=== PATIENT | male | born 1950 | race Caucasian/White ===

== ENCOUNTER 2017-08-28 11:26 | Emergency (ER) | payer SELFPAY ==
[2017-08-28 11:30] VITALS: BP 119/70; PULSE 96; RESP 16; TEMP 98.3; O2SAT 98
[2017-08-28] MEDS ORDERED: PERM5CRE11 TOPICAL (12:24)
[2017-08-28] MEDS ORDERED: DOXY100C PO (12:24)
--- NOTE | 2017-08-28 12:28 | PD ---
HPI Chief Complaint: Injury Time Seen by Provider: 12:23 Travel History International Travel<30 days: No Contact w/Intl Traveler<30days: No Traveled to known affect area: No History of Present Illness HPI 66-year-old male presents for evaluation of rash. Symptoms started 2 weeks ago. He reports that 2 weeks ago he was incarcerated briefly. Since then he has been homeless. The rash started while he was incarcerated. The rash is itchy but also painful. He describes the pain as a burning sensation which is constant worsen walking, scratching. The rash is localized to the legs bilaterally. He reports that since leaving long term he has been staying at people' s homes and also outside. Denies fevers, chills. He reports that he has been placing a [id number] antibiotic cream on it as well as corticosteroid creams with no relief. He has no other complaints at this time. [facility] Past Medical History Anxiety: Yes Psychiatric: Yes Social History Alcohol Use: No Tobacco Use: No Substance Use: No Allergies-Medications (Allergen,Severity, Reaction): Coded Allergies: Penicillins (Verified Allergy, Unknown, 08/12/17) Reported Meds & Prescriptions Reported Meds & Active Scripts Active Elimite Topical (Permethrin) 5% Cream 1 Applic TOPICAL ONCE Doxycycline Hyclate 100 Mg Cap 100 Mg PO BID Review of Systems Except as stated in HPI: all other systems reviewed are Neg Physical Exam Narrative GENERAL: Well-developed well-nourished male in no acute distress SKIN: Warm and dry. Multiple scabbed lesions noted to the lower extremities bilaterally. There is some impetigo formation on some of the lesions. No petechiae, no purpura, no hives, no pustules HEAD: Atraumatic. Normocephalic. EYES: Pupils equal and round. No scleral icterus. No injection or drainage. ENT: No nasal bleeding or discharge. Mucous membranes pink and moist. NECK: Trachea midline. No JVD. CARDIOVASCULAR: Regular rate and rhythm. No murmur appreciated. RESPIRATORY: No accessory muscle use. Clear to auscultation. Breath sounds equal bilaterally. GASTROINTESTINAL: Abdomen soft, non-tender, nondistended. Hepatic and splenic margins not palpable. MUSCULOSKELETAL: No obvious deformities. No pitting edema. NEUROLOGICAL: Awake and alert. No obvious cranial nerve deficits. Motor grossly within normal limits. Normal speech. Data Data Last Documented VS Vital Signs Date Time Temp Pulse Resp B/P (MAP) Pulse Ox O2 Delivery O2 Flow Rate FiO2 08/28/17 11:30 98.3 96 16 119/70 (86) 98 Orders Orders Ed Discharge Order (08/28/17 12:24) MDM Medical Decision Making Medical Screen Exam Complete: Yes Emergency Medical Condition: Yes Medical Record Reviewed: Yes Differential Diagnosis Excoriated bug bites, scabies, contact dermatitis, allergic contact dermatitis, impetigo, cellulitis Narrative Course The plan at this time is to treat the impetigo with doxycycline as he is allergic to penicillin and has no known history of taking cephalosporins in the past. He will be given permethrin cream in case of underlying scabies infestation as the etiology of his primary rash. Diagnosis Primary Impression: Impetigo Additional Instructions: Medication as prescribed. Avoid scratching at the rash. Wash the rash twice a day with warm soap and water and apply antibiotic cream. Follow-up with primary care physician in one to 2 weeks. Return for any emergent medical conditions. Med/Other Pt SpecificInfo: Prescription(s) given Scripts Permethrin Topical (Elimite Topical) 5% Cream 1 APPLIC TOPICAL ONCE for Scabies, #1 TUBE 1 Refill Prov: Milla Urias MD 08/28/17 Doxycycline Hyclate (Doxycycline Hyclate) 100 Mg Cap 100 MG PO BID for Infection, #20 CAP 0 Refills Prov: Milla Urias MD 08/28/17 Disposition: 01 DISCHARGE HOME Condition: Stable Chip Chaudhari Aug 28, 2017 12:28
== END 2017-08-28 13:09 | disposition home or self-care (01) ==
LOC: NEPK 11:26
DX: L01.00 Impetigo, unspecified (principal)
CPT/HCPCS: 99283

== ENCOUNTER 2017-09-06 13:19 | Emergency (ER) | payer SELFPAY ==
[~2017-09-06] VITALS: Ht 182.9 cm; Wt 55.0 kg
[~2017-09-06 13:19] MED LIST: DOXY100C PO; PERM5CRE11 TOPICAL
[2017-09-06 13:25] VITALS: BP 112/61; PULSE 95; RESP 18; TEMP 98.3; O2SAT 98
[2017-09-06 14:06] VITALS: BP 156/87; PULSE 89; RESP 20; TEMP 97.9; O2SAT 97
[2017-09-06] MEDS ORDERED: DOXY100C PO (14:21)
--- NOTE | 2017-09-06 14:25 | PD ---
HPI Chief Complaint: Skin Problem Time Seen by Provider: 14:19 Travel History International Travel<30 days: No Contact w/Intl Traveler<30days: No Traveled to known affect area: No History of Present Illness HPI 66-year-old male reevaluation rash. Rash on the legs for 3 weeks which started in snf. Seen on August 28, diagnosed with impetigo and scabies, prescribed permethrin and doxycycline. He used the permethrin 4 days ago and still has itching and painful rash however it has improved. He was unable to afford the doxycycline. Currently homeless. No other complaints. [facility] Past Medical History Anxiety: Yes Psychiatric: Yes Tetanus Vaccination: < 5 Years Past Surgical History Surgical History: No Previous Surgery Social History Alcohol Use: No Tobacco Use: No Substance Use: No Allergies-Medications (Allergen,Severity, Reaction): Coded Allergies: Penicillins (Verified Allergy, Unknown, 09/06/17) Reported Meds & Prescriptions Reported Meds & Active Scripts Active Doxycycline Hyclate 100 Mg Cap 100 Mg PO BID Review of Systems Except as stated in HPI: all other systems reviewed are Neg Physical Exam Narrative GENERAL: Well-nourished male in no acute distress SKIN: Warm and dry. Multiple scabbed excoriated lesions on the lower extremities. HEAD: Atraumatic. Normocephalic. EYES: Pupils equal and round. No scleral icterus. No injection or drainage. ENT: No nasal bleeding or discharge. Mucous membranes pink and moist. NECK: Trachea midline. No JVD. CARDIOVASCULAR: Regular rate and rhythm. No murmur appreciated. RESPIRATORY: No accessory muscle use. Clear to auscultation. Breath sounds equal bilaterally. GASTROINTESTINAL: Abdomen soft, non-tender, nondistended. Hepatic and splenic margins not palpable. MUSCULOSKELETAL: No obvious deformities. No clubbing. No cyanosis. No edema. NEUROLOGICAL: Awake and alert. No obvious cranial nerve deficits. Motor grossly within normal limits. Normal speech. PSYCHIATRIC: Appropriate mood and affect; insight and judgment normal. Data Data Last Documented VS Vital Signs Date Time Temp Pulse Resp B/P (MAP) Pulse Ox O2 Delivery O2 Flow Rate FiO2 09/06/17 14:06 97.9 89 20 156/87 (110) 97 09/06/17 13:25 Room Air Orders Orders Ed Discharge Order (09/06/17 14:19) [facility] Medical Decision Making Medical Screen Exam Complete: Yes Emergency Medical Condition: Yes Medical Record Reviewed: Yes Differential Diagnosis Scabies, contact dermatitis, impetigo Narrative Course The patient will be given a coupon for doxycycline. He is stable for discharge. Diagnosis Primary Impression: Impetigo Additional Impression: Scabies Additional Instructions: Use the permethrin refill as discussed. Take the antibiotic as prescribed. Avoid scratching. Follow-up with primary care physician if rash persists. Med/Other Pt SpecificInfo: Prescription(s) given Scripts Doxycycline Hyclate (Doxycycline Hyclate) 100 Mg Cap 100 MG PO BID for Infection, #20 CAP 0 Refills Prov: Milla Urias MD 09/06/17 Disposition: 01 DISCHARGE HOME Condition: Stable Chip Chaudhari Sep 06, 2017 14:25
== END 2017-09-06 14:59 | disposition home or self-care (01) ==
LOC: NEPD 13:19
DX: L01.00 Impetigo, unspecified (principal); B86 Scabies; Z59.0 Homelessness
CPT/HCPCS: 99283

== ENCOUNTER 2017-09-11 00:29 | Emergency (ER) | payer SELFPAY ==
[~2017-09-11] VITALS: Ht 177.8 cm; Wt 75.0 kg
[~2017-09-11 00:29] MED LIST changes: -PERM5CRE11 TOPICAL
[2017-09-11 00:31] VITALS: BP 138/59; PULSE 90; RESP 16; TEMP 98.6; O2SAT 100
[2017-09-11] MEDS ORDERED: BACT800T5 PO (00:50)
[2017-09-11] MEDS ORDERED: PERM5CRE11 TOPICAL (00:50)
--- NOTE | 2017-09-11 00:58 | PD ---
HPI Chief Complaint: Medical Clearance Time Seen by Provider: 00:34 Travel History International Travel<30 days: No Contact w/Intl Traveler<30days: No Traveled to known affect area: No History of Present Illness HPI 66-year-old white male presents to emergency department requesting a refill of medications for what he reports as impetigo and possible scabies to his lower extremities. He states that he has had open draining sores which have been pruritic initially but have been improving but have not resolved. He has taken his course of Elimite but has not finished his doxycycline. The patient is requesting refill of medications. Symptoms are moderate no alleviating factors. PFSH Past Medical History Anxiety: Yes Diminished Hearing: No Psychiatric: Yes Social History Alcohol Use: No Tobacco Use: No Substance Use: No Allergies-Medications (Allergen,Severity, Reaction): Coded Allergies: Penicillins (Verified Allergy, Unknown, 09/06/17) Reported Meds & Prescriptions Reported Meds & Active Scripts Active Elimite Topical (Permethrin) 5% Cream 1 Applic TOPICAL ONCE Bactrim DS (Sulfamethoxazole-Trimethoprim) 800-160 Mg Tab 1 Tab PO BID Doxycycline Hyclate 100 Mg Cap 100 Mg PO BID Review of Systems General / Constitutional: No: Fever Eyes: No: Visual changes HENT: No: Headaches Cardiovascular: No: Chest Pain or Discomfort Respiratory: No: Shortness of Breath Gastrointestinal: No: Abdominal Pain Genitourinary: No: Dysuria Musculoskeletal: No: Pain Skin: Positive Rash, Positive Itching Neurologic: No: Weakness Psychiatric: No: Depression Endocrine: No: Polydipsia Hematologic/Lymphatic: No: Easy Bruising Physical Exam Narrative GENERAL: This is a well-nourished, well-developed patient, in no apparent distress. SKIN: Patient has multiple scab encrusted lesions on the lower extremities. HEAD: Atraumatic. Normocephalic. EYES: PERRL, EOMI, no discharge or injection. No scleral icterus. EARS: Clear NOSE: Nasal turbinates appear normal. THROAT: Mucosa pink and moist. Airway patent. NECK: Trachea midline. supple, moves head freely. LUNGS: Clear to auscultation. CV: Regular in rhythm. ABDOMEN: Soft nontender. EXT: No clubbing cyanosis +1 pedal edema. Data Data Last Documented VS Vital Signs Date Time Temp Pulse Resp B/P (MAP) Pulse Ox O2 Delivery O2 Flow Rate FiO2 09/11/17 00:31 98.6 90 16 138/59 (85) 100 Room Air MDM Medical Decision Making Medical Screen Exam Complete: Yes Emergency Medical Condition: Yes Medical Record Reviewed: Yes Differential Diagnosis MDM: High Differential diagnoses: Abscess, folliculitis, cellulitis, lymphangitis, abrasion, contact dermatitis Narrative Course Patient's treated for impetigo Diagnosis Primary Impression: Impetigo Patient Instructions: General Instructions Additional Instructions: Rest. Daily wound care with soap and water and apply Neosporin. Elimite and Bactrim DS. Follow-up with a primary care doctor in 1 week. Med/Other Pt SpecificInfo: Prescription(s) given, Wound Care Scripts Permethrin Topical (Elimite Topical) 5% Cream 1 APPLIC TOPICAL ONCE for Scabies, #1 TUBE 0 Refills Prov: Dione Houston MD 09/11/17 Sulfamethoxazole-Trimethoprim (Bactrim DS) 800-160 Mg Tab 1 TAB PO BID for Infection, #20 TAB 0 Refills Prov: Dione Houston MD 09/11/17 Disposition: 01 DISCHARGE HOME Condition: Stable Dwayne West Sep 11, 2017 00:58
== END 2017-09-11 01:25 | disposition home or self-care (01) ==
LOC: NEPD 00:29
DX: L01.00 Impetigo, unspecified (principal); F41.9 Anxiety disorder, unspecified; Z88.0 Allergy status to penicillin
CPT/HCPCS: 99284

== ENCOUNTER 2017-11-07 13:29 | Emergency (ER) | payer SELFPAY ==
[~2017-11-07] VITALS: Ht 170.2 cm; Wt 60.0 kg
[~2017-11-07 13:29] MED LIST changes: +BACT800T5 PO; +PERM5CRE11 TOPICAL
[2017-11-07 13:31] VITALS: BP 110/57; PULSE 110; RESP 16; TEMP 98.9; O2SAT 98
[2017-11-07 14:23] LABS: AUTOMATED NEUTROPHIL # 3.1 TH/MM3 (1.8-7.7); BASOPHIL % 0.7 % (0.0-2.0); EOSINOPHIL # 0.3 TH/MM3 (0-0.4); EOSINOPHIL % 5.8 % (0.0-4.0); HEMATOCRIT 29.9 % (39.0-51.0); HEMOGLOBIN 9.6 GM/DL (13.0-17.0); LYMPH % 20.5 % (9.0-44.0); LYMPHOCYTE # 1.1 TH/MM3 (1.0-4.8); MEAN CELL VOLUME 90.2 FL (80.0-100.0); MEAN CORPUSCULAR HEMOGLOBIN 29.1 PG (27.0-34.0); MEAN CORPUSCULAR HGB CONC 32.3 % (32.0-36.0); MEAN PLATELET VOLUME 6.8 FL (7.0-11.0); MONOCYTE # 0.6 TH/MM3 (0-0.9); PLATELET COUNT 267 TH/MM3 (150-450); RED BLOOD COUNT 3.31 MIL/MM3 (4.50-5.90); RED CELL DISTRIBUTION WIDTH 16.3 % (11.6-17.2); WHITE BLOOD COUNT 5.2 TH/MM3 (4.0-11.0)
[2017-11-07 14:44] LABS: ALBUMIN 3.2 GM/DL (3.4-5.0); ALT (GPT) 17 U/L (12-78); AST (GOT) 14 U/L (15-37); BLOOD UREA NITROGEN 13 MG/DL (7-18); CALCIUM 8.6 MG/DL (8.5-10.1); CHLORIDE 105 MEQ/L (98-107); CREATININE 0.81 MG/DL (0.60-1.30); GLOMERULAR FILTRATION RATE 96 ML/MIN (>89); GLUCOSE,RANDOM 88 MG/DL (74-106); SODIUM (NA) 139 MEQ/L (136-145)
[2017-11-07 14:47] LABS: ALKALINE PHOSPHATASE 130 U/L (45-117); TOTAL BILIRUBIN ADULT 0.3 MG/DL (0.2-1.0); TOTAL PROTEIN 7.2 GM/DL (6.4-8.2)
[2017-11-07] MEDS ORDERED: ZANT300T PO (18:02)
[2017-11-07] MEDS ORDERED: DICY10 PO (18:02)
--- NOTE | 2017-11-07 18:02 | PD ---
HPI Chief Complaint: GI Complaint Time Seen by Provider: 17:50 Travel History International Travel<30 days: No Contact w/Intl Traveler<30days: No Traveled to known affect area: No History of Present Illness HPI 67-year-old male complains of occasional loose stool for the past 3 weeks. Patient has history of irritable bowel. Patient states that he has one loose stool every 2 days. Patient denies any abdominal pain. Patient denies any headache. Patient denies any chest pain or shortness of breath. Patient denies any vomiting. Patient denies any dysuria or frequency. Patient denies any back pain. Patient has been taking Imodium [id number] without much relief of the loose stool. Patient states that he has problem with loose stool in the past secondary to anxiety. PFSH Past Medical History Anxiety: Yes Diminished Hearing: No Psychiatric: Yes ?: Not Social History Alcohol Use: No Tobacco Use: No Substance Use: No Allergies-Medications (Allergen,Severity, Reaction): Coded Allergies: Penicillins (Verified Allergy, Unknown, 09/06/17) Reported Meds & Prescriptions Reported Meds & Active Scripts Active Review of Systems General / Constitutional: No: Fever Eyes: No: Visual changes HENT: No: Headaches Cardiovascular: No: Chest Pain or Discomfort Respiratory: No: Shortness of Breath Gastrointestinal: Positive: Diarrhea, No: Abdominal Pain Genitourinary: No: Dysuria Musculoskeletal: No: Pain Skin: No Rash Neurologic: No: Weakness Psychiatric: No: Depression Endocrine: No: Polydipsia Hematologic/Lymphatic: No: Easy Bruising Physical Exam Narrative GENERAL: Well-nourished, well-developed patient. SKIN: Focused skin assessment warm/dry. HEAD: Normocephalic. EYES: No scleral icterus. No injection or drainage. NECK: Supple, trachea midline. No JVD or lymphadenopathy. CARDIOVASCULAR: Regular rate and rhythm without murmurs, gallops, or rubs. RESPIRATORY: Breath sounds equal bilaterally. No accessory muscle use. GASTROINTESTINAL: Abdomen soft, non-tender, nondistended. MUSCULOSKELETAL: No cyanosis, or edema. BACK: Nontender without obvious deformity. No CVA tenderness. Neurologic exam normal. Data Data Last Documented VS Vital Signs Date Time Temp Pulse Resp B/P (MAP) Pulse Ox O2 Delivery O2 Flow Rate FiO2 11/07/17 13:31 98.9 110 16 110/57 (74) 98 Orders Orders Complete Blood Count With Diff (11/07/17 13:41) Comprehensive Metabolic Panel (11/07/17 13:41) Labs Laboratory Tests Test 11/07/17 13:58 White Blood Count 5.2 TH/MM3 Red Blood Count 3.31 MIL/MM3 Hemoglobin 9.6 GM/DL Hematocrit 29.9 % Mean Corpuscular Volume 90.2 FL Mean Corpuscular Hemoglobin 29.1 PG Mean Corpuscular Hemoglobin Concent 32.3 % Red Cell Distribution Width 16.3 % Platelet Count 267 TH/MM3 Mean Platelet Volume 6.8 FL Neutrophils (%) (Auto) 61.0 % Lymphocytes (%) (Auto) 20.5 % Monocytes (%) (Auto) 12.0 % Eosinophils (%) (Auto) 5.8 % Basophils (%) (Auto) 0.7 % Neutrophils # (Auto) 3.1 TH/MM3 Lymphocytes # (Auto) 1.1 TH/MM3 Monocytes # (Auto) 0.6 TH/MM3 Eosinophils # (Auto) 0.3 TH/MM3 Basophils # (Auto) 0.0 TH/MM3 CBC Comment DIFF FINAL Differential Comment Blood Urea Nitrogen 13 MG/DL Creatinine 0.81 MG/DL Random Glucose 88 MG/DL Total Protein 7.2 GM/DL Albumin 3.2 GM/DL Calcium Level 8.6 MG/DL Alkaline Phosphatase 130 U/L Aspartate Amino Transf (AST/SGOT) 14 U/L Alanine Aminotransferase (ALT/SGPT) 17 U/L Total Bilirubin 0.3 MG/DL Sodium Level 139 MEQ/L Potassium Level 3.8 MEQ/L Chloride Level 105 MEQ/L Carbon Dioxide Level 28.0 MEQ/L Anion Gap 6 MEQ/L Estimat Glomerular Filtration Rate 96 ML/MIN [facility] Medical Decision Making Medical Screen Exam Complete: Yes Emergency Medical Condition: Yes Differential Diagnosis Differential diagnosis including irritable bowel, gastroenteritis, dehydration, electrolyte imbalance, enteritis. Narrative Course 67-year-old male with occasional loose stool. History of irritable bowel. Diagnosis Primary Impression: Irritable bowel Qualified Codes: K58.0 - Irritable bowel syndrome with diarrhea Patient Instructions: General Instructions Additional Instructions: Zantac and Bentyl as Directed. Follow-up with personal physician. Return if worse. Med/Other Pt SpecificInfo: Prescription(s) given Scripts Dicyclomine (Bentyl) 10 Mg Cap 10 MG PO TID Y for Bowel Management, #30 CAP 0 Refills Prov: Leonel Dorado MD 11/07/17 Ranitidine (Zantac) 300 Mg Tab 300 MG PO DAILY, #30 TAB 0 Refills Prov: Leonel Dorado MD 11/07/17 Disposition: 01 DISCHARGE HOME Condition: Stable Leonel Dorado MD Nov 07, 2017 18:02
== END 2017-11-07 18:36 | disposition home or self-care (01) ==
LOC: NEPD 13:29
DX: K58.0 Irritable bowel syndrome with diarrhea (principal)
CPT/HCPCS: 80053; 85025; 99283

== ENCOUNTER 2017-11-25 03:23 | Emergency (ER) | payer SELFPAY ==
[~2017-11-25 03:23] MED LIST changes: -BACT800T5 PO; +DICY10 PO; -DOXY100C PO; -PERM5CRE11 TOPICAL; +ZANT300T PO
[2017-11-25 03:26] VITALS: BP 126/66; PULSE 78; RESP 16; TEMP 97.6; O2SAT 98
[2017-11-25] MEDS ORDERED: KETOCONAZOLE 2% CREAM 15 GM TOPICAL ONE (03:45)
[2017-11-25] MEDS ORDERED: LAMI1SPR TOPICAL (03:49)
--- NOTE | 2017-11-25 03:56 | PD ---
HPI Chief Complaint: Pain: Acute or Chronic Time Seen by Provider: 03:34 Travel History International Travel<30 days: No Contact w/Intl Traveler<30days: No Traveled to known affect area: No History of Present Illness HPI 67-year-old homeless white male presents to emergency Department with complaints of bilateral foot pain. He states that he does not get any rest at night. He has to walk everywhere he goes. His feet have been wet quite some time. He states that his feet are becoming red, swollen and there is some skin breakdown. He denies any fever or chills. He states the pain is burning. There is no alleviating factors. Worsened by walking. PFSH Past Medical History Anxiety: Yes Diminished Hearing: No Psychiatric: Yes Immunizations Current: Yes Social History Alcohol Use: No Tobacco Use: No Substance Use: No Allergies-Medications (Allergen,Severity, Reaction): Coded Allergies: Penicillins (Verified Allergy, Unknown, 11/25/17) Reported Meds & Prescriptions Reported Meds & Active Scripts Active Lamisil At Topical (Terbinafine Topical) 1 % Glen 1 Applic TOPICAL BID 30 Days Bentyl (Dicyclomine HCl) 10 Mg Cap 10 Mg PO TID PRN Zantac (Ranitidine HCl) 300 Mg Tab 300 Mg PO DAILY Review of Systems Except as stated in HPI: all other systems reviewed are Neg Physical Exam Narrative GENERAL: This is a well-nourished, well-developed patient, in no apparent distress. SKIN: No rashes, ecchymoses or lesions. Warm and dry. HEAD: Atraumatic. Normocephalic. EYES: PERRL, EOMI, no discharge or injection. No scleral icterus. EARS: Clear NOSE: Nasal turbinates appear normal. THROAT: Mucosa pink and moist. Airway patent. NECK: Trachea midline. supple, moves head freely. LUNGS: Clear to auscultation. CV: Regular in rhythm. ABDOMEN: Soft nontender. EXT: Patient has 1+ edema in the lower extremities. He has some venous stasis changes in the lower extremities. Both feet are mildly edematous, there is skin breakdown between the toes and on the lateral aspect of the left foot. There is maceration and weeping. There is a foul odor associated with fungus. He has intact gross sensation. Good pulses. Data Data Last Documented VS Vital Signs Date Time Temp Pulse Resp B/P (MAP) Pulse Ox O2 Delivery O2 Flow Rate FiO2 11/25/17 03:26 97.6 78 16 126/66 (86) 98 Room Air Orders Orders Ketoconazole 2% Cream (Nizoral 2% Cream) (11/25/17 03:45) Ed Discharge Order (11/25/17 03:53) MDM Medical Decision Making Medical Screen Exam Complete: Yes Emergency Medical Condition: Yes Medical Record Reviewed: Yes Differential Diagnosis MDM: High Differential diagnoses: Abscess, folliculitis, cellulitis, lymphangitis, abrasion, contact dermatitis, tinea pedis Narrative Course Patient has tinea pedis. He KETOCONIZOL here in the ER. Diagnosis Primary Impression: tinea pedis Patient Instructions: General Instructions Additional Instructions: Rest. Elevation. Daily wound care with soap and water and apply antifungal cream. When you run out of this cream purchase Lamisil AT Follow-up with a primary care doctor in 1 week. Med/Other Pt SpecificInfo: Prescription(s) given Scripts Terbinafine Topical (Lamisil At Topical) 1 % Glen 1 APPLIC TOPICAL BID for Manage Fungal Infection for 30 Days, BOTTLE 0 Refills Prov: Demetrio Whitfield MD 11/25/17 Disposition: 01 DISCHARGE HOME Condition: Stable Dwayne West Nov 25, 2017 03:56
== END 2017-11-25 07:01 | disposition home or self-care (01) ==
LOC: NEPD 03:23
DX: B35.3 Tinea pedis (principal); F41.9 Anxiety disorder, unspecified; Z59.0 Homelessness
CPT/HCPCS: 99283